=== PATIENT | female | born 1960 | race African-American/Black ===

== ENCOUNTER 2017-01-01 09:30 | Emergency (ER) | payer MEDICAID ==
[~2017-01-01] VITALS: Ht 157.5 cm; Wt 107.0 kg
[2017-01-01] MEDS ORDERED: FLUO-123 PO (09:37)
[2017-01-01] MEDS ORDERED: TRAZ-129 PO (09:38)
[2017-01-01] MEDS ORDERED: KETOROLAC 60MG/2ML VIAL IM ONE (14:45)
[2017-01-01] MEDS ORDERED: METHOCARBAMOL 500MG TABLET PO ONE (15:00)
[2017-01-01 15:45] LABS: CLARITY URINE CLEAR (CLEAR); COLOR URINE YELLOW (YELLOW); GLUCOSE URINE NEGATIVE (NEGATIVE); KETONES URINE 1+ (NEGATIVE); LEUKOCYTE ESTERASE URINE NEGATIVE (NEGATIVE); NITRITE URINE NEGATIVE (NEGATIVE); OCCULT BLOOD URINE NEGATIVE (NEGATIVE); PROTEIN URINE NEGATIVE (NEGATIVE)
[2017-01-01 16:50] VITALS: BP 133/63
== END 2017-01-01 17:00 | disposition home or self-care (01) ==
LOC: ER 11:13
DX: M62.838 Other muscle spasm (principal); M54.41 Lumbago with sciatica, right side; F32.9 Major depressive disorder, single episode, unspecified
CPT/HCPCS: 81003; 93971; 96372; 99285; J1885; Z7610